=== PATIENT | female | born 1980 | race Caucasian/White ===

== ENCOUNTER → 2021-03-07 10:20 | Outpatient (CLI) | payer OTHER, SELFPAY ==
--- NOTE | ~2021-03-07 | US_ITS ---
EXAMINATION: US transvaginal EXAM DATE: 03/07/2021 10:55 INDICATION: Pelvic and perineal pain, post ablation . TECHNIQUE: Pelvic transvaginal sonogram was performed. There are multiple grayscale and Doppler imag es available for interpretation. There is no prior study for comparison. FINDINGS: Uterus measures 8.5 x 5.7 x 6.4 cm, with a focal endometrial homogeneously hypoechoic kayla on with echogenic rim, could be a focal contained region of proteinaceous fluid or endometrial polyp. Was ablation recently? Endometrial stripe otherwise measures 6 mm, within normal limits. There is n o free pelvic fluid. Right adnexa: The ovary measures 3.1 x 2.4 x 2.9 cm and is morphologically normal. Ovarian vascular f low confirmed. Left adnexa: The ovary measures 3.1 x 2.5 x 2.3 cm and is morphologically normal. Ovarian vascular fl ow confirmed. IMPRESSION: Focal circumscribed homogeneously hypoechoic endometrial region which could be contained proteinaceous fluid pocket or blood products, particularly if ablation was recently. Consider 6-12 week follow-up exam. Reviewed, dictated and finalized at location B. [employer] IMPRESSION: Focal circumscribed homogeneously hypoechoic endometrial region whi ch could be contained proteinaceous fluid pocket or blood products, particularl y if ablation was recently. Consider 6-12 week follow-up exam.
== END ==
PROVIDERS: Visit Provider Obstetrics & Gynecology Gynecology
DX: R10.2 Pelvic and perineal pain (principal)
CPT/HCPCS: 76830